=== PATIENT | female | born 1950 | race Two or more races ===

== ENCOUNTER 2017-11-16 08:33 | Outpatient (CLI) | payer OTHER | END 2017-11-16 08:47 | disposition home or self-care (01) | LOC: SONOGRAMA 08:33 | DX: K76.0 Fatty (change of) liver, not elsewhere classified (principal) ==

== ENCOUNTER 2019-02-16 11:01 | Outpatient (CLI) | payer OTHER | END 2019-02-16 11:03 | disposition home or self-care (01) | LOC: MAMO-SONO 11:01 | DX: Z12.31 Encounter for screening mammogram for malignant neoplasm of breast (principal); Z87.898 Personal history of other specified conditions ==

== ENCOUNTER 2020-10-18 09:55 | Outpatient (CLI) | payer OTHER | END 2020-10-18 14:24 | disposition home or self-care (01) | LOC: RAD 09:55 | DX: M99.03 Segmental and somatic dysfunction of lumbar region (principal); M99.04 Segmental and somatic dysfunction of sacral region; M99.05 Segmental and somatic dysfunction of pelvic region; M16.0 Bilateral primary osteoarthritis of hip; M51.36 Other intervertebral disc degeneration, lumbar region ==